=== PATIENT | female | born 1935 | race Caucasian/White ===

== ENCOUNTER 2017-02-02 14:55 | Emergency (ER) | payer OTHER ==
[~2017-02-02] VITALS: Ht 165.1 cm; Wt 72.0 kg
[~2017-02-02 14:55] MED LIST: ALEN70TA4 PO; LSN5 PO; TPRSR/25
[2017-02-02 15:00] VITALS: TEMP 36.7; Ht 165.1 cm; Wt 72.0 kg
[2017-02-02] MEDS ORDERED: SODIUM CHLORIDE 0.9% 1000ML 1,000 ML IV STA (15:45)
[2017-02-02] MEDS ORDERED: OPTIRAY 320 IV PRN (16:00)
--- NOTE | 2017-02-02 16:10 | DIAGNOSTIC IMAGING REPORT ---
CHEST ONE VIEW PORTABLE CLINICAL HISTORY: CHEST PAIN dyspnea COMPARISON STUDY: 06/15/2014 FINDINGS: Chronic basilar pleural and parenchymal fibrotic/interstitial change. No acute infiltrate. Diaphragms smooth but somewhat flattened. IMPRESSION: Chronic change. No acute process. Electronically signed by: Jcarlos Ellis M.D. 02/02/2017 4:09 PM Dictated Date/Time: 02/02/2017 4:08 PM
[2017-02-02 16:12] LABS: BASO % 0.3 %; BASO ABS # 0.02 K/uL (0-0.2); COMPLETE YES; EOS % 0.5 %; HEMATOCRIT 40.5 % (37-47); IG% 0.1 %; LYMPH % 25.8 %; LYMPH ABS # 1.95 K/uL (1.2-3.4); MEAN CELL VOLUME 95.1 fL (80-100); MEAN CORPUSCULAR HEMOGLOBIN 32.9 pg (25-34); MEAN CORPUSCULAR HGB CONC 34.6 g/dl (32-36); MEAN PLATELET VOLUME 8.8 fL (7.4-10.4); MONO % 9.5 %; NEUT % 63.8 %; PLATELET COUNT 282 K/uL (130-400); RED BLOOD COUNT 4.26 M/uL (4.2-5.4); WHITE BLOOD COUNT 7.56 K/uL (4.8-10.8)
[2017-02-02 16:20] LABS: PARTIAL THROMBOPLASTIN RATIO 1.1; PROTHROMBIN TIME (PATIENT) 10.5 SECONDS (9.0-12.0)
[2017-02-02] MEDS ORDERED: CALCTAB7 PO (16:22)
[2017-02-02] MEDS ORDERED: LOVA40TA3 PO (16:22)
[2017-02-02] MEDS ORDERED: TYLOTC500 PO (16:22)
[2017-02-02] MEDS ORDERED: NRV/10 PO (16:30)
[2017-02-02] MEDS ORDERED: LISI-461 PO (16:30)
[2017-02-02] MEDS ORDERED: MULT-513 PO (16:30)
[2017-02-02] MEDS ORDERED: TPRSR/50 PO (16:30)
[2017-02-02] MEDS ORDERED: CHOL200010 PO (16:30)
[2017-02-02] MEDS ORDERED: FSM70 PO (16:30)
[2017-02-02 16:36] LABS: BUN/CREATININE RATIO 16.5 (10-20); CALCIUM 9.4 mg/dl (8.5-10.1); CREATININE 1.2 mg/dl (0.60-1.20); POTASSIUM 3.8 mmol/L (3.5-5.1)
--- NOTE | 2017-02-02 18:07 | DIAGNOSTIC IMAGING REPORT ---
CT ANGIOGRAPHY OF THE CHEST, PULMONARY EMBOLUS PROTOCOL CLINICAL HISTORY: Shortness of breath. Leg swelling. COMPARISON STUDY: Chest radiographs June 15, 2014 and February 02, 2017. TECHNIQUE: Following IV administration of 96 mL of Optiray-320, helical axial images of the chest were obtained utilizing the pulmonary embolus protocol. Maximal intensity projections and sagittal and coronal reformats were viewed on an independent 3D workstation. IV contrast was administered without complication. CT DOSE: 277.88 mGy.cm FINDINGS: No pulmonary emboli are identified. The heart is mildly enlarged. There is no pericardial effusion. No enlarged thoracic lymph nodes are present. There is no evidence for thoracic aortic dissection. There is moderate atherosclerotic plaque of the aortic arch. Note is made of a 2 cm outpouching arising from the left lateral aspect of the aortic arch. 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 There is no evidence for dissection. No consolidation is identified to suggest pneumonia. Lingular opacity suggest atelectasis. Right lower lobe opacity represents atelectasis. There are healed left-sided rib fractures. A lobulated density within the left upper quadrant of the abdomen could reflect a portion of the spleen or a splenule. There are surgical clips within left upper quadrant. Hyperdensities along the capsule of the left kidney are probably benign. IMPRESSION: 1. No pulmonary emboli identified. 2. No acute intrathoracic findings. 3. 2 cm outpouching arising from the left lateral aspect of the aortic arch which contains thrombus. This suggests a saccular aneurysm. A follow-up chest CT in 3 months is recommended to ensure stability. Electronically signed by: Guerrero Davis M.D. 02/02/2017 6:05 PM Dictated Date/Time: 02/02/2017 5:55 PM
--- NOTE | 2017-02-02 18:50 | DIAGNOSTIC IMAGING REPORT ---
BILATERAL LOWER EXTREMITY VENOUS DOPPLER CLINICAL HISTORY: Lower extremity swelling. Chest pain. COMPARISON STUDY: No previous studies for comparison. TECHNIQUE: Sonography of the deep venous system of the bilateral lower extremities was performed. Compression and augmentation were evaluated. FINDINGS: The common femoral, superficial femoral and popliteal veins were compressible. Augmentation was normal. Flow was shown within the deep calf vessels although the calf vessels were partially obscured on this exam. IMPRESSION: No evidence of deep venous thrombus within the bilateral lower extremities. Electronically signed by: Guerrero Davis M.D. 02/02/2017 6:48 PM Dictated Date/Time: 02/02/2017 6:48 PM
--- NOTE | 2017-02-02 19:05 | EMERGENCY ROOM VISIT NOTE ---
ED Visit Note First contact with patient: 15:27 Staff note: I have reviewed the Patients chart and have discussed this case with my PA. I generally agree with the ED note and findings.
[2017-02-02 19:15] VITALS: BP 121/86; PULSE 105; O2SAT 94
--- NOTE | 2017-02-06 13:23 | EMERGENCY ROOM VISIT NOTE ---
ED Visit Note First contact with patient: 15:27 Chief Complaint: Right leg swelling. History of Present Illness: Ms. Jose is a 81-year-old white female who ambulates into the ED accompanied by a male friend complaining of right lower leg swelling and dyspnea on exertion. Patient was referred to the ED by Dr. Alcantara, her PCP, for evaluation of a DVT and pulmonary embolism. Historically patient reports she has a history of mitral valve prolapse, diastolic heart failure, hypertension and previous superficial thrombophlebitis of the right lower leg. Patient reports over the last couple months she has noted some increase in swelling in both her legs and feet which is slightly more pronounced on the left. She does report the swelling worsens during the day and slightly decreases at night. Over the last couple of days she is also noted dyspnea on exertion which resolves with rest. She was seen at her PCPs office today and referred to the ED for further evaluation and care. Associated with her swelling she reports she has a pressure-like discomfort in the left lower leg that she feels is related to her swelling. She rates this discomfort 2/10. Pain is nonradiating. Pain worsens with palpation. She has not identified any alleviating factors related to this discomfort and she has not taken any medication for this discomfort prior to arrival at the hospital. She continues to have dyspnea on exertion but currently she is not feeling any shortness of breath could she is at rest on the bed. She denies fevers, chills, sweats, upper respiratory tract symptoms, worsening cough, chest pain, palpitations, orthopnea, claudication, cramping, recent surgery/extended travel, abdominal pain, nausea, vomiting, decreased appetite, back pain, leg weakness/numbness/tingling. Review of Systems: As noted above in history of present illness. All body systems were reviewed and found to be negative as noted above. Past Medical History: As previously noted, esophageal reflux, chronic kidney disease, dyslipidemia, osteoporosis, degenerative disc disease, vitamin D deficiency herpes zoster, colitis, acute pancreatitis, peripheral neuropathy, unspecified back surgery, hysterectomy, appendectomy, bladder repair, cataract surgery. Current Medications: Medications Dose Route/Sig Max Daily Dose Days Date Category Tylenol (Acetaminophen) 500 Mg Tab 1,000 Mg PO Q6 PRN 06/15/14 Reported Caltrate 600 Plus (Calcium Carbonate-Vitamin D W/) 1 Tab Tab 1 Tab PO BID 06/15/14 Reported Mevacor (Lovastatin) 40 Mg Tab 40 Mg PO QPM 06/15/14 Reported Lisinopril 5 Mg Tab 5 Mg PO DAILY 06/15/14 Reported Metoprolol Succinate ER (Metoprolol Succinate) 25 Mg Tabcr 25 Mg DAILY 06/15/14 Reported Fosamax (Alendronate Sodium) 70 Mg Tab 7 Mg PO WK 06/15/14 Reported Allergies to Medications: Budesonide. Social History: Patient is not currently employed; she feels safe in her home environment; she denies tobacco use. Physical Examination: Vital Signs: Date Time Temp Pulse Resp B/P Pulse Ox O2 Delivery O2 Flow Rate FiO2 02/02/17 19:15 105 19 121/86 94 Room Air 02/02/17 16:35 87 16 139/85 95 Room Air 02/02/17 15:00 36.7 76 18 164/102 99 Room Air GENERAL: 81-year-old female in no acute distress, nontoxic-appearing, afebrile and hemodynamically stable. NEUROLOGICAL: Awake, alert and oriented to person, place and time. Answering questions appropriately and following commands. Normal gait. Good hand eye coordination. No focal motor sensory deficits. SKIN: Warm, dry and pink. HEENT: Atraumatic and normocephalic. PERRLA. Sclera white and conjunctiva pink. No drainage from naris. Oral cavity moist and pink. Pharynx is nonerythematous or edematous. Speech normal. No lymphadenopathy. Trachea midline. No jugular venous distention. BACK: No tenderness over the bony spine. No CVA tenderness. THORAX: Lungs sounds are clear to auscultation and equal bilaterally with symmetrical chest wall. No wheezing, rales or rhonchi. No crepitus, tenderness , subcutaneous air or deformities noted. HEART: Regular rate and rhythm. No gallops, rubs or murmurs are appreciated. ABDOMEN: Flat, soft and nontender. Positive bowel sounds in all quadrants. No guarding, rigidity or organomegaly. EXTREMITIES: Moves all extremities well on command and with purpose. All distal neurovascular statuses are intact and equal bilaterally. Bilateral dependent edema more pronounced on the left than the right. The left lower leg appears skin shiny and the right lower leg appears flat. There is some venous congestion in the right foot but none in the left foot. No cords were palpable bilaterally but she had mild tenderness in the left calf but not the right. Dorsalis pedis and anterior tibialis pulses are intact and equal bilaterally. Capillary refill is brisk. She is able to distinguish light sensations through all dermatomes. ED Course: Patient is assessed as noted above. Laboratory Testing: Test 02/02/17 16:00 02/02/17 16:05 Range/Units White Blood Count 7.56 4.8-10.8 K/uL Red Blood Count 4.26 4.2-5.4 M/uL Hemoglobin 14.0 12.0-16.0 g/dL Hematocrit 40.5 37-47 % Mean Corpuscular Volume 95.1 80-100 fL Mean Corpuscular Hemoglobin 32.9 25-34 pg Mean Corpuscular Hemoglobin Concent 34.6 32-36 g/dl Platelet Count 282 130-400 K/uL Mean Platelet Volume 8.8 7.4-10.4 fL Neutrophils (%) (Auto) 63.8 % Lymphocytes (%) (Auto) 25.8 % Monocytes (%) (Auto) 9.5 % Eosinophils (%) (Auto) 0.5 % Basophils (%) (Auto) 0.3 % Neutrophils # (Auto) 4.82 1.4-6.5 K/uL Lymphocytes # (Auto) 1.95 1.2-3.4 K/uL Monocytes # (Auto) 0.72 0.11-0.59 K/uL Eosinophils # (Auto) 0.04 0-0.5 K/uL Basophils # (Auto) 0.02 0-0.2 K/uL RDW Standard Deviation 44.9 36.4-46.3 fL RDW Coefficient of Variation 12.9 11.5-14.5 % Immature Granulocyte % (Auto) 0.1 % Immature Granulocyte # (Auto) 0.01 0.00-0.02 K/uL Prothrombin Time 10.5 9.0-12.0 SECONDS Prothromb Time International Ratio 1.0 0.9-1.1 Activated Partial Thromboplast Time 28.0 21.0-31.0 SECONDS Partial Thromboplastin Ratio 1.1 Sodium Level 137 136-145 mmol/L Potassium Level 3.8 3.5-5.1 mmol/L Chloride Level 101 98-107 mmol/L Carbon Dioxide Level 27 21-32 mmol/L Anion Gap 9.0 3-11 mmol/L Blood Urea Nitrogen 20 7-18 mg/dl Creatinine 1.20 0.60-1.20 mg/dl Est Creatinine Clear Calc Drug Dose 37.8 ml/min Estimated GFR () 49.8 Estimated GFR (Non- 43.0 BUN/Creatinine Ratio 16.5 10-20 Random Glucose 95 70-99 mg/dl Calcium Level 9.4 8.5-10.1 mg/dl Total Bilirubin 0.7 0.2-1 mg/dl Direct Bilirubin 0.1 0-0.2 mg/dl Aspartate Amino Transf (AST/SGOT) 22 15-37 U/L Alanine Aminotransferase (ALT/SGPT) 22 12-78 U/L Alkaline Phosphatase 61 45-117 U/L Total Protein 8.6 6.4-8.2 gm/dl Albumin 4.1 3.4-5.0 gm/dl Lipase 189 73-393 U/L Bedside D-Dimer > 450 0-450 ng/mlFEU Bedside Troponin I 0.000 0-0.045 ng/ml EKG: Was read by myself and reviewed with Dr. Haines; shows sinus rhythm with a first-degree AV block at a ventricular rate of 90 bpm. Left atrial enlargement is noted. No skin changes were noted indicating injury, ischemia or infarction. This was compared to previous and no acute changes were noted. Chest X-Ray: Was read by myself and the radiologist showing no acute infiltrates , effusions or pneumothorax. Normal heart silhouette. Radiologist does note chronic changes when compared to previous. Bilateral Venous Doppler Ultrasound: Was reviewed by myself and read by the radiologist showing no evidence of deep vein thrombus. Chest CTA: Was reviewed by myself and read by the radiologist and shows no pulmonary emboli, no acute intrathoracic findings, 2 cm outpouching arising from the left lateral aspect of the aortic arch which contains a thrombus suggestive of a saccular aneurysm. Patient was hydrated with normal saline. Patient was reassessed multiple times during her stay in the emergency department. Patient was educated about tonight's findings and instructed on her treatment plan; she verbalizes understanding and agreement with this plan. Clinical Impression: Bilateral lower leg swelling. Dyspnea on exertion. Aortic aneurysm. Decision-Making: Initially my differential diagnosis I considered heart failure , pneumonia, kidney failure/kidney injury, deep vein thrombus, benign dependent edema and other causes. Disposition: Patient discharged home in stable condition accompanied by multiple family members; prior to departure she was reassessed and subjectively reported she was feeling slightly better. Plan: Patient was encouraged to continue her current medications as prescribed. Patient was encouraged to try to keep her legs elevated while at rest. Patient is encouraged to follow her family doctor tomorrow morning and inform them of today's ED visit and request follow-up care and treatment; specifically for her new found aortic aneurysm. Patient was encouraged return the ED for fevers, worsening swelling, worsening shortness of breath or any new/concerning symptoms.
== END 2017-02-02 19:17 | disposition home or self-care (01) ==
LOC: C.EDB 14:56 → C.EDC 19:17
DX: I71.9 Aortic aneurysm of unspecified site, without rupture (principal); M79.89 Other specified soft tissue disorders; R06.00 Dyspnea, unspecified; N18.9 Chronic kidney disease, unspecified; E78.5 Hyperlipidemia, unspecified; K21.9 Gastro-esophageal reflux disease without esophagitis; K86.1 Other chronic pancreatitis; M81.0 Age-related osteoporosis without current pathological fracture; G62.9 Polyneuropathy, unspecified; Z90.710 Acquired absence of both cervix and uterus; Z98.890 Other specified postprocedural states; Z79.899 Other long term (current) drug therapy

== ENCOUNTER 2018-06-25 10:06 | Emergency (ER) | payer OTHER ==
[~2018-06-25] VITALS: Ht 165.1 cm; Wt 74.3 kg
[~2018-06-25 10:06] MED LIST changes: -ALEN70TA4 PO; +CALCTAB7 PO; +CHOL200010 PO; +FSM70 PO; +LISI-461 PO; +LOVA40TA3 PO; -LSN5 PO; +MULT-513 PO; +NRV/10 PO; -TPRSR/25; +TPRSR/50 PO; +TYLOTC500 PO
[2018-06-25 10:23] VITALS: TEMP 36.7; Ht 165.1 cm; Wt 74.3 kg
[2018-06-25 11:01] VITALS: O2SAT 95
[2018-06-25 11:02] LABS: BASO % 0.3 %; BASO ABS # 0.02 K/uL (0-0.2); EOS % 0.1 %; EOS ABS # 0.01 K/uL (0-0.5); HEMATOCRIT 44.1 % (37-47); HEMOGLOBIN 15.2 g/dL (12.0-16.0); IG# 0.02 K/uL (0.00-0.02); LYMPH % 17.2 %; LYMPH ABS # 1.24 K/uL (1.2-3.4); MEAN CORPUSCULAR HEMOGLOBIN 32.1 pg (25-34); MEAN CORPUSCULAR HGB CONC 34.5 g/dl (32-36); MONO % 8.7 %; MONO ABS # 0.63 K/uL (0.11-0.59); NEUT % 73.4 %; NEUT ABS # 5.31 K/uL (1.4-6.5); PLATELET COUNT 302 K/uL (130-400); RED CELL DISTRIBUTION WIDTH CV 12.4 % (11.5-14.5); RED CELL DISTRIBUTION WIDTH SD 42.6 fL (36.4-46.3); WHITE BLOOD COUNT 7.23 K/uL (4.8-10.8)
--- NOTE | 2018-06-25 11:13 | DIAGNOSTIC IMAGING REPORT ---
SINGLE VIEW CHEST CLINICAL HISTORY: Dizziness. FINDINGS: An AP, portable, upright chest radiograph is compared to chest x-ray and chest CT dated 02/02/2017. The examination is degraded by portable technique and apical lordotic positioning. The heart is mildly enlarged and there is atherosclerotic calcification of the thoracic aorta. The pulmonary vasculature is noncongested. Chronic interstitial thickening similar to previous. Left basilar atelectasis is observed. No airspace consolidation or large pleural effusion is identified. No pneumothorax is seen. The skeletal structures are osteopenic. There are healed left-sided rib fractures. Fusion hardware is seen in the lower cervical spine. IMPRESSION: Cardiomegaly with no acute cardiopulmonary abnormality. Electronically signed by: Mac Campbell M.D. 06/25/2018 11:11 AM Dictated Date/Time: 06/25/2018 11:10 AM
--- NOTE | 2018-06-25 11:26 | DIAGNOSTIC IMAGING REPORT ---
CT HEAD WITHOUT CONTRAST (CT) CLINICAL HISTORY: Dizziness COMPARISON STUDY: June 15, 2014 TECHNIQUE: Axial CT of the brain is performed from the vertex to the skull base. IV contrast was not administered for this examination. A dose lowering technique was utilized adhering to the principles of ALARA. CT DOSE: 638.56 mGycm FINDINGS: No intra or extra-axial mass lesions are visualized. There is no CT evidence of acute cortical infarction. There is no evidence of midline shift. There is no acute hemorrhage. No calvarial fractures are visualized. There are patchy white matter hypodensities likely on a small vessel basis. There is no evidence of pathologic ventricular dilatation. There is no evidence of acute sinusitis IMPRESSION: No acute intracranial findings Electronically signed by: Naresh Keating M.D. 06/25/2018 11:25 AM Dictated Date/Time: 06/25/2018 11:24 AM
[2018-06-25] MEDS ORDERED: MECLIZINE HCL 25 MG TAB PO STA (11:46)
[2018-06-25 11:47] LABS: ALBUMIN 4.2 gm/dl (3.4-5.0); ALT/SGPT 29 U/L (12-78); AST/SGOT 32 U/L (15-37); BLOOD UREA NITROGEN 13 mg/dl (7-18); CALCIUM 9.2 mg/dl (8.5-10.1); CARBON DIOXIDE 27 mmol/L (21-32); CREATININE 1.17 mg/dl (0.60-1.20); GLUCOSE 109 mg/dl (70-99); SODIUM 128 mmol/L (136-145)
[2018-06-25 11:49] LABS: ALKALINE PHOSPHATASE 59 U/L (45-117); CKMB 4.4 ng/ml (0.5-3.6)
[2018-06-25] MEDS ORDERED: POTASSIUM CHLORIDE 20 MEQ TABCR PO STA ×3 (11:51→12:23)
[2018-06-25] MEDS ORDERED: ONDANSETRON INJ 2 MG/ML 2 ML VIAL IV STA (11:51)
[2018-06-25] MEDS ORDERED: POTASSIUM CHLORIDE 10 MEQ TABCR ONE (12:16)
[2018-06-25] MEDS ORDERED: TRMCR130WC TOP (12:36)
[2018-06-25] MEDS ORDERED: MULT-188 PO (12:36)
[2018-06-25] MEDS ORDERED: LISI-725 PO (12:36)
[2018-06-25] MEDS ORDERED: HYDR25TA4 PO (12:36)
[2018-06-25] MEDS ORDERED: AMLODIPINE BESYLATE 5 MG TAB PO STA (12:58)
[2018-06-25] MEDS ORDERED: AMLO5TAB3 PO (13:00)
[2018-06-25 13:48] VITALS: BP 166/104; PULSE 77; O2SAT 91
--- NOTE | 2018-06-25 15:11 | EMERGENCY ROOM VISIT NOTE ---
History First contact with patient: 10:35 Chief Complaint: DIZZY Stated Complaint: HEADACHE, NAUSEA, VOMITING, LEGS ARE SHAKY Nursing Triage Summary: DIZZY STARTED ON MONDAY History of Present Illness The patient is a 82 year old female who presents to the Emergency Room with complaints of dizziniess. The patient reports she has had a headache along with dizziness that has been ongoing since . The patient notes that her PCP has been changing her blood pressure medications due to her potassium being elevated. She denies that this is the worst headache of her life. She denies any extra salt intake. She has no other complaints. Review of Systems See HPI for pertinent positives & negatives. A total of 10 systems reviewed and were otherwise negative. Past Medical/Surgical History Medical Problems: (1) High cholesterol (2) Hypertension (3) Mitral valve prolapse Family History No pertinent family history Social History Smoking Status: Former Smoker Alcohol Use: none Housing Status: lives with family Occupation Status: unemployed Current/Historical Medications Scheduled Amlodipine (Norvasc), 5 MG PO DAILY Calcium Carbonate-Vitamin D W/ (Caltrate 600 Plus), 1 TAB PO BID Cholecalciferol (Vitamin D), 2,000 UNITS PO DAILY Hydrochlorothiazide (Hctz), 12.5 MG PO DAILY Lisinopril (Zestril), 10 MG PO DAILY Lovastatin (Mevacor), 40 MG PO QPM Metoprolol Succinate (Metoprolol Succinate ER), 50 MG PO QD Multiple Vitamins W/ Minerals (Ocuvite), 1 TAB PO DAILY Scheduled PRN Acetaminophen (Tylenol), 1,000 MG PO Q6 PRN for Pain Triamcinolone Acet (Aristocort 0.1%), 1 APPLN TOP BID PRN for Itching Physical Exam Vital Signs Date Time Temp Pulse Resp B/P (MAP) Pulse Ox O2 Delivery O2 Flow Rate FiO2 06/25/18 13:48 77 16 166/104 91 06/25/18 12:38 84 20 176/97 96 Room Air 06/25/18 12:36 84 23 91 06/25/18 12:06 91 20 94 06/25/18 11:39 97 16 182/98 95 Room Air 108 171/107 121 150/101 06/25/18 11:36 99 22 96 06/25/18 11:28 150/101 06/25/18 11:26 182/98 06/25/18 11:06 90 22 95 06/25/18 11:03 96 18 181/102 95 Room Air 06/25/18 11:01 95 Room Air 06/25/18 11:01 95 Room Air 06/25/18 10:56 101 06/25/18 10:53 181/102 06/25/18 10:23 36.7 116 16 167/108 93 Room Air Physical Exam GENERAL: Awake, alert, well-appearing, in no acute distress HENT: Normocephalic, atraumatic. Oropharynx unremarkable. EYES: Normal conjunctiva. Sclera non-icteric. NECK: Supple. No nuchal rigidity. FROM. No JVD. RESPIRATORY: Clear to auscultation. CARDIAC: Regular rate, normal rhythm. Extremities warm and well perfused. Pulses equal. ABDOMEN: Soft, non-distended. No tenderness to palpation. No rebound or guarding. No masses. RECTAL: Deferred. MUSCULOSKELETAL: Chest examination reveals no tenderness. The back is symmetrical on inspection without obvious abnormality. There is no CVA tenderness to palpation. No joint edema. LOWER EXTREMITIES: Calves are equal size bilaterally and non-tender. No edema. No discoloration. NEURO: Normal sensorium. No sensory or motor deficits noted. SKIN: No rash or jaundice noted. Medical Decision & Procedures ER Provider Diagnostic Interpretation: CT HEAD WITHOUT CONTRAST (CT) CLINICAL HISTORY: Dizziness COMPARISON STUDY: June 15, 2014 TECHNIQUE: Axial CT of the brain is performed from the vertex to the skull base. IV contrast was not administered for this examination. A dose lowering technique was utilized adhering to the principles of ALARA. CT DOSE: 638.56 mGycm FINDINGS: No intra or extra-axial mass lesions are visualized. There is no CT evidence of acute cortical infarction. There is no evidence of midline shift. There is no acute hemorrhage. No calvarial fractures are visualized. There are patchy white matter hypodensities likely on a small vessel basis. There is no evidence of pathologic ventricular dilatation. There is no evidence of acute sinusitis IMPRESSION: No acute intracranial findings SINGLE VIEW CHEST CLINICAL HISTORY: Dizziness. FINDINGS: An AP, portable, upright chest radiograph is compared to chest x-ray and chest CT dated 02/02/2017. The examination is degraded by portable technique and apical lordotic positioning. The heart is mildly enlarged and there is atherosclerotic calcification of the thoracic aorta. The pulmonary vasculature is noncongested. Chronic interstitial thickening similar to previous. Left basilar atelectasis is observed. No airspace consolidation or large pleural effusion is identified. No pneumothorax is seen. The skeletal structures are osteopenic. There are healed left-sided rib fractures. Fusion hardware is seen in the lower cervical spine. IMPRESSION: Cardiomegaly with no acute cardiopulmonary abnormality. Laboratory Results 06/25/18 10:45 Red Blood Count 4.74, Mean Corpuscular Volume 93.0, Mean Corpuscular Hemoglobin 32.1, Mean Corpuscular Hemoglobin Concent 34.5, Mean Platelet Volume 9.0, Neutrophils (%) (Auto) 73.4, Lymphocytes (%) (Auto) 17.2, Monocytes (%) (Auto) 8.7, Eosinophils (%) (Auto) 0.1, Basophils (%) (Auto) 0.3, Neutrophils # (Auto) 5.31, Lymphocytes # (Auto) 1.24, Monocytes # (Auto) 0.63, Eosinophils # (Auto) 0.01, Basophils # (Auto) 0.02 06/25/18 10:45 Test 06/25/18 10:45 06/25/18 11:30 White Blood Count 7.23 K/uL (4.8-10.8) Red Blood Count 4.74 M/uL (4.2-5.4) Hemoglobin 15.2 g/dL (12.0-16.0) Hematocrit 44.1 % (37-47) Mean Corpuscular Volume 93.0 fL (80-100) Mean Corpuscular Hemoglobin 32.1 pg (25-34) Mean Corpuscular Hemoglobin Concent 34.5 g/dl (32-36) Platelet Count 302 K/uL (130-400) Mean Platelet Volume 9.0 fL (7.4-10.4) Neutrophils (%) (Auto) 73.4 % Lymphocytes (%) (Auto) 17.2 % Monocytes (%) (Auto) 8.7 % Eosinophils (%) (Auto) 0.1 % Basophils (%) (Auto) 0.3 % Neutrophils # (Auto) 5.31 K/uL (1.4-6.5) Lymphocytes # (Auto) 1.24 K/uL (1.2-3.4) Monocytes # (Auto) 0.63 K/uL (0.11-0.59) Eosinophils # (Auto) 0.01 K/uL (0-0.5) Basophils # (Auto) 0.02 K/uL (0-0.2) RDW Standard Deviation 42.6 fL (36.4-46.3) RDW Coefficient of Variation 12.4 % (11.5-14.5) Immature Granulocyte % (Auto) 0.3 % Immature Granulocyte # (Auto) 0.02 K/uL (0.00-0.02) Anion Gap 10.0 mmol/L (3-11) Est Creatinine Clear Calc Drug Dose 38.7 ml/min Estimated GFR () 51.0 Estimated GFR (Non- 44.0 BUN/Creatinine Ratio 10.7 (10-20) Calcium Level 9.2 mg/dl (8.5-10.1) Total Bilirubin 1.0 mg/dl (0.2-1) Direct Bilirubin 0.2 mg/dl (0-0.2) Aspartate Amino Transf (AST/SGOT) 32 U/L (15-37) Alanine Aminotransferase (ALT/SGPT) 29 U/L (12-78) Alkaline Phosphatase 59 U/L (45-117) Total Creatine Kinase 111 U/L (26-192) Creatine Kinase MB 4.4 ng/ml (0.5-3.6) Creatine Kinase MB Ratio 4.0 (0-3.0) Troponin I < 0.015 ng/ml (0-0.045) Total Protein 9.0 gm/dl (6.4-8.2) Albumin 4.2 gm/dl (3.4-5.0) Thyroid Stimulating Hormone (TSH) 1.840 uIu/ml (0.300-4.500) Urine Color YELLOW Urine Appearance CLEAR (CLEAR) Urine pH 8.0 (4.5-7.5) Urine Specific [place] 1.015 (1.000-1.030) Urine Protein NEG (NEG) Urine Glucose (UA) NEG (NEG) Urine Ketones NEG (NEG) Urine Occult Blood NEG (NEG) Urine Nitrite NEG (NEG) Urine Bilirubin NEG (NEG) Urine Urobilinogen NEG (NEG) Urine Leukocyte Esterase NEG (NEG) Urine WBC (Auto) 1-5 /hpf (0-5) Urine RBC (Auto) 0-4 /hpf (0-4) Urine Hyaline Casts (Auto) 1-5 /lpf (0-5) Urine Epithelial Cells (Auto) 10-20 /lpf (0-5) Urine Bacteria (Auto) NEG (NEG) Medications Administered Medications (Trade) Dose Ordered Sig/Gilbert Route Start Time Stop Time Status Last Admin Dose Admin Meclizine HCl (Antivert Tab) 25 mg NOW STAT PO 06/25/18 11:46 06/25/18 11:47 DC 06/25/18 11:46 25 MG Ondansetron HCl (Zofran Inj) 4 mg NOW STAT IV 06/25/18 11:51 06/25/18 11:52 DC 06/25/18 12:14 4 MG Potassium Chloride (Klor-Con M10) 40 meq STK-MED ONCE .ROUTE 06/25/18 12:16 06/25/18 12:17 DC 06/25/18 12:16 40 MEQ Amlodipine Besylate (Norvasc Tab) 2.5 mg NOW STAT PO 06/25/18 12:58 06/25/18 13:00 DC 06/25/18 13:16 2.5 MG Medical Decision This is an 82-year-old female who presents the emergency department complaining of dizziness. I will note that the patient's sodium is 128 and her potassium is also 3.0. Reviewing the patient's laboratory work as well as her laboratory work from [facility] I will note that this appears lower than it ever has in the past. The patient reports her PCP has been playing with her blood pressure medications and I suspect that this may be in relation to her hydrochlorothiazide. For this reason and using shared medical decision making with both the patient and her niece we made the decision to hold the patient's hydrochlorothiazide and change her to a calcium channel [place]. Patient was started on amlodipine here in the emergency department. I stressed the need for close follow-up with the patient's primary care physician. Patient was in agreement with the treatment plan. Impression Primary Impression: Dizziness Additional Impression: Hypokalemia Departure Information Dispostion Home / Self-Care Condition GOOD Prescriptions Amlodipine (Norvasc) 5 Mg Tab 5 MG PO DAILY for 30 Days, #30 TAB Prov: Sabino Londono MD 06/25/18 Referrals Enriquez, Laura M., D.O. (PCP) Forms HOME CARE DOCUMENTATION FORM, School Instructions, Work Instructions, IMPORTANT VISIT INFORMATION Patient Instructions Hypertension Control, Hypertension Dc, Hyponatremia Dc, My [facility] , ED Dizziness UKO Additional Instructions STOP Hydrochlorothiazide Continue Lisinopril Start Amlodipine 5mg Need close follow up with Dr Enriquez You were found to have an elevated blood pressure today (>120 sytolic or >90 diastolic). Per medicare guidelines, you need to follow up with this blood pressure screening with your Primary Care Physician (PCP). For a new PCP call [phone]. You have been examined and treated today on an emergency basis only. This is not a substitute for, or an effort to provide, complete comprehensive medical care. It is impossible to recognize and treat all injuries or illnesses in a single emergency department visit. It is therefore important that you follow up closely with your PCP. Call as soon as possible for an appointment. Thank you for your time and consideration. I look forward to speaking with you again soon. Please don't hesitate to call us if you have any questions. Problem Qualifiers
== END 2018-06-25 13:50 | disposition home or self-care (01) ==
LOC: C.EDB 10:07 → C.EDA 13:50
DX: R42 Dizziness and giddiness (principal); E87.6 Hypokalemia; I10 Essential (primary) hypertension; E78.00 Pure hypercholesterolemia, unspecified; Z87.891 Personal history of nicotine dependence